=== PATIENT | male | born 1960 | race Caucasian/White ===

== ENCOUNTER 2017-07-22 15:45 | Emergency (ER) | payer MEDICAID ==
[2017-07-22] MEDS ORDERED: ACETAMINOPHEN 500 MG TABLET PO ONE (15:57)
--- NOTE | 2017-07-22 16:04 | Emergency Department Record ---
History of Present Illness - General Chief complaint: Head Injury Stated complaint: LACERATION ON HEAD/COKER Time Seen by Provider: 07/22/17 15:54 Source: Patient, Family Mode of Arrival: Wheelchair Limitations: No limitations - History of Present Illness Initial comments: 56 yo male presents after a trip and fall. He hit his head on a door way. He has lumbar disease and occasionally has falls due to pain. No LOC. No neck pain. No other injuries. No blood thinners. No new back symptoms. He does have a headache. MD Complaint: Head injury, Head pain Onset/Timin -: Minutes(s) Mechanism of Injury: Unsure Location: Frontal Loss of Consciousness: No Place: Home Severity scale (1-10): 8 Provoking factors: Other Travel Screening - Travel/Exposure Within Last 30 Days Have you traveled within the last 30 days?: No - Travel/Exposure Within Last Year Have you traveled outside the [place] in the last year?: No - Additonal Travel Details Have you been exposed to anyone with a communicable illness?: No - Travel Symptoms Symptom Screening: None Review of Systems Constitutional: Denies: Chills, Fever, Malaise, Weakness Eyes: Denies: Eye discharge ENT: Denies: Congestion, Throat pain Respiratory: Denies: Cough, Dyspnea, Hemoptysis, Stridor, Wheezes Cardiovascular: Denies: Chest pain, Palpitations, Syncope Endocrine: Denies: Fatigue Gastrointestinal: Denies: Abdominal pain, Diarrhea, Nausea, Vomiting Genitourinary: Denies: Frequency, Hematuria Musculoskeletal: Reports: Arthralgia, Back pain (chronic), Myalgia Skin: Reports: Bruising. Denies: Change in color Neurological: Reports: Headache. Denies: Abnormal gait, Confusion, Numbness, Tingling, Tremors, Vertigo, Weakness Psychiatric: Denies: Anxiety Hematological/Lymphatic: Denies: Blood Clots, Easy bleeding, Easy bruising, Swollen glands Past Medical History - SOCIAL HISTORY Smoking Status: Never smoker Alcohol Use: None Drug Use: None - RESPIRATORY Hx Respiratory Disorders: Yes Hx Asthma: Yes - CARDIOVASCULAR Hx Cardio Disorders: Yes Hx Hypertension: Yes - NEURO Hx Neuro Disorders: Yes Hx Dizziness: Yes - GI Hx GI Disorders: No - Hx Genitourinary Disorders: No - ENDOCRINE Hx Endocrine Disorders: Yes Hx Diabetes: Yes Hx Thyroid Disease: No - MUSCULOSKELETAL Hx Musculoskeletal Disorders: No - PSYCH Hx Psych Problems: No - HEMATOLOGY/ONCOLOGY Hx Hematology/Oncology Disorders: No Family Medical History Any Significant Family History?: No Physical Exam - General General Appearance: Alert, Oriented x3, Cooperative, No acute distress Limitations: No limitations - Head Head exam: Normocephalic. negative: Atraumatic, Normal inspection Head exam detail: Abrasion Image of Face/Head: 1 - abrasion with mild swelling - Eye Eye exam: Normal appearance, PERRL, EOMI. negative: Conjunctival injection, Periorbital swelling, Scleral icterus - ENT ENT exam: Normal exam, Mucous membranes moist Ear exam: Normal external inspection Nasal Exam: Normal inspection Mouth exam: Normal external inspection - Neck Neck exam: Normal inspection, Full ROM. negative: Tenderness - Respiratory Respiratory exam: Normal lung sounds bilaterally. negative: Respiratory distress - Cardiovascular Cardiovascular Exam: Regular rate, Normal rhythm, Normal heart sounds - GI/Abdominal GI/Abdominal exam: Soft. negative: Tenderness - Rectal Rectal exam: Deferred - exam: Deferred - Extremities Extremities exam: Normal inspection, Full ROM, Normal capillary refill. negative: Joint swelling, Pedal edema, Tenderness - Back Back exam: Reports: Normal inspection, Full ROM. Denies: CVA tenderness (R), CVA tenderness (L), Muscle spasm, Paraspinal tenderness, Rash noted, Tenderness , Vertebral tenderness - Neurological Neurological exam: Alert, Normal gait, Oriented X3, Reflexes normal - Psychiatric Psychiatric exam: Normal affect, Normal mood - Skin Skin exam: Dry, Intact, Normal color, Warm Course Vital Signs 07/22/17 15:48 Temperature 97.5 F L Pulse Rate 80 Respiratory 16 Rate Blood Pressure 120/84 Pulse Ox 96 - Reevaluation(s) Reevaluation #1: 07/22/17 16:56 The HCT is negative The wound is an abrasion and not a laceration DC home with abrasion and concussion instructions Disposition Disposition: Discharge Clinical Impression: Abrasion Contusion of head Qualifiers: Encounter type: initial encounter Contusion of head detail: scalp Qualified Code(s): S00.03XA - Contusion of scalp, initial encounter Disposition: Home, Self-Care Condition: (1) Good Instructions: Concussion (ED), Abrasion (ED) Additional Instructions: Ice the tender area Return if dizziness, nausea, vomiting, uncontrolled headache or any concerns Rest and avoid over exertion the next few days. Forms: Patient Portal Access Time of Disposition: 16:56 Quality - Quality Measures Quality Measures: N/A - Blood Pressure Screening Does Patient Have Any of the Following: No Blood Pressure Classification: Pre-Hypertensive BP Reading Systolic Measurement: 120 Diastolic Measurement: 84 Screening for High Blood Pressure: < Pre-Hypertensive BP, F/U Documented > [ G8950] Pre-Hypertensive Follow-up Interventions: Referral to alternative/primary care provider.
--- NOTE | 2017-07-23 07:53 | CT SCAN REPORT ---
EXAM: HEAD CT WITHOUT CONTRAST HISTORY: FALL, FOREHEAD LACERATION, NO LOSS OF CONSCIOUSNESS. TECHNIQUE: Contiguous axial images from the cerebral convexities to the foramen magnum were obtained without contrast. Comparison: None. Encounter: Initial. FINDINGS: The brain volume is normal. No acute intracranial hemorrhage, mass effect, or midline shift. No CT evidence of acute infarct. The ventricles, basal cisterns and sulci are within normal limits. The osseous structures, soft tissues and paranasal sinuses are unremarkable. IMPRESSION: NO ACUTE INTRACRANIAL PROCESS. JOB NUMBER: [id number] [facility]
== END 2017-07-22 17:14 | disposition home or self-care (01) ==
LOC: ER 15:45
DX: S00.03XA Contusion of scalp, initial encounter (principal); S00.01XA Abrasion of scalp, initial encounter; R51 Headache; W01.198A Fall on same level from slipping, tripping and stumbling with subsequent striking against other object, initial encounter; Y92.009 Unspecified place in unspecified non-institutional (private) residence as the place of occurrence of the external cause
CPT/HCPCS: 70450; 99283

== ENCOUNTER 2017-11-25 14:51 | Emergency (ER) | payer MEDICAID ==
--- NOTE | 2017-11-25 15:08 | Emergency Department Record ---
History of Present Illness - General Chief complaint: Extremity Problem Stated complaint: FALL INJURY, LEFT FOOT Time Seen by Provider: 11/25/17 15:04 Source: Patient Mode of Arrival: Ambulatory Limitations: No limitations - History of Present Illness Initial comments: The patient was walking around about 2 hours ago and stepped in a hole and inverted his L ankle. He has had L foot pain since. The patient denies any other issues. MD Complaint: Extremity pain Onset/Timin -: Hour(s) Location: Left, Foot History of Same: No Radiation: Proximal Severity scale (1-10): 3 Quality: Aching Consistency: Constant Improves with: Immobilization Worsens with: Walking, Weight bearing Associated Symptoms: Denies other symptoms - Related Data Home Medications Medication Instructions Recorded Confirmed Last Taken Amitriptyline HCl 25 mg PO QHS 11/25/17 11/25/17 Unknown Aspirin 81 mg PO QAM 11/25/17 11/25/17 Unknown Citalopram Hydrobromide [Celexa] 20 mg PO QHS 11/25/17 11/25/17 Unknown Fenofibrate 160 mg PO QAM 11/25/17 11/25/17 Unknown Ibuprofen [Motrin] 800 mg PO TID 11/25/17 11/25/17 Unknown Insulin Aspart [Novolog] 1 unit SQ ASDIR 11/25/17 11/25/17 Unknown Insulin Glargine,Hum.rec.anlog 100 unit SQ QHS 11/25/17 11/25/17 Unknown [Basaglar Kwikpen U-100] Lisinopril 10 mg PO QAM 11/25/17 11/25/17 Unknown Metformin HCl 1,000 mg PO BID 11/25/17 11/25/17 Unknown Omeprazole [Prilosec] 20 mg PO QAM 11/25/17 11/25/17 Unknown Allergies Allergy/AdvReac Type Severity Reaction Status Date / Time No Known Drug Allergies Allergy Verified 11/25/17 15:03 Travel Screening - Travel/Exposure Within Last 30 Days Have you traveled within the last 30 days?: No Review of Systems Constitutional: Denies: Chills, Fever Past Medical History - SOCIAL HISTORY Smoking Status: Never smoker Alcohol Use: None Drug Use: None - RESPIRATORY Hx Respiratory Disorders: Yes Hx Asthma: Yes - CARDIOVASCULAR Hx Cardio Disorders: Yes Hx Hypertension: Yes - NEURO Hx Neuro Disorders: Yes Hx Dizziness: Yes - GI Hx GI Disorders: No - Hx Genitourinary Disorders: No - ENDOCRINE Hx Endocrine Disorders: Yes Hx Diabetes: Yes Hx Thyroid Disease: No - MUSCULOSKELETAL Hx Musculoskeletal Disorders: No - PSYCH Hx Psych Problems: Yes Hx Anxiety: Yes Hx Depression: Yes - HEMATOLOGY/ONCOLOGY Hx Hematology/Oncology Disorders: No Family Medical History Any Significant Family History?: No Physical Exam - General General Appearance: Alert, Oriented x3, Cooperative, No acute distress - Head Head exam: Atraumatic, Normocephalic - Eye Eye exam: Normal appearance, PERRL - Extremities Extremities exam: Full ROM, Normal capillary refill, Tenderness. negative: Normal inspection (There is very minor bruising to the proximal lateral L foot.) , Joint swelling Image of Feet: 1 - Area of pain and tenderness. Course Vital Signs 11/25/17 14:57 Temperature 97.6 F Pulse Rate 83 Respiratory 20 Rate Blood Pressure 130/82 Pulse Ox 96 - Reevaluation(s) Reevaluation #1: I did discuss the xray results and the need for F/U with their PCP in [facility] for an Orthopedic doctor referral. 11/25/17 15:53 Medical Decision Making - Data Complexity MDM Data: X-Ray Ordered and/or Reviewed - Radiology Data Radiology results: Report reviewed (L foot: Nondisplaced fx base of 5th MT Mateo rowan: neg) Disposition Disposition: Discharge Clinical Impression: Foot fracture, left Qualifiers: Encounter type: initial encounter Fracture type: closed Qualified Code(s): S92.902A - Unspecified fracture of left foot, initial encounter for closed fracture Disposition: Home, Self-Care Condition: (2) Stable Instructions: Foot Fracture in Adults (ED) Additional Instructions: Please take your home pain medicines as needed and ice and elevate the L foot for 3 days. Use the walking boot and crutches as directed. Please see your family doctor for recheck early next week for recheck and to obtain an Orthopedic referral. Forms: Patient Portal Access Time of Disposition: 15:55 Quality - Quality Measures Quality Measures: N/A - Blood Pressure Screening View Details: Yes Does Patient Have Any of the Following: No Blood Pressure Classification: Pre-Hypertensive BP Reading Systolic Measurement: 130 Diastolic Measurement: 82 Screening for High Blood Pressure: < Pre-Hypertensive BP, F/U Documented > [ G8950] Pre-Hypertensive Follow-up Interventions: Referral to alternative/primary care provider.
--- NOTE | 2017-11-26 07:54 | RADIOLOGY REPORT ---
EXAM: LEFT FOOT HISTORY: INJURY. TECHNIQUE: Three views of the left foot were performed. FINDINGS: Nondisplaced fracture deformity at the base of the fifth metatarsal bone. Large calcaneal spur. The remaining osseous structures are normal. IMPRESSION: 1. NONDISPLACED FRACTURE DEFORMITY AT THE BASE OF THE FIFTH METATARSAL BONE. 2. LARGE CALCANEAL SPUR. JOB NUMBER: [id number] [facility]
--- NOTE | 2017-11-26 07:56 | RADIOLOGY REPORT ---
EXAM: LEFT ANKLE HISTORY: INJURY. TECHNIQUE: Three views of the left ankle were performed. FINDINGS: No evidence of fracture or dislocation. Large calcaneal spur. Soft tissue swelling. Fracture deformity at the base of the fifth metatarsal bone. IMPRESSION: 1. SOFT TISSUE SWELLING. FRACTURE DEFORMITY AT THE BASE OF THE FIFTH METATARSAL BONE. 2. LARGE CALCANEAL SPUR. JOB NUMBER: [id number] [facility]
== END 2017-11-25 16:30 | disposition home or self-care (01) ==
LOC: ER 14:51
DX: S92.352A Displaced fracture of fifth metatarsal bone, left foot, initial encounter for closed fracture (principal); M25.572 Pain in left ankle and joints of left foot; W50.2XXA Accidental twist by another person, initial encounter; I10 Essential (primary) hypertension
CPT/HCPCS: 99283

== ENCOUNTER 2018-10-09 18:40 | Emergency (ER) | payer MEDICAID ==
[2018-10-09 19:47] LABS: BASO % 0.1 % (0-6); EOS % 0.1 % (0-6); GRAN % 78.2 % (47-80); HEMOGLOBIN 17.5 gm/dl (14.0-18.0); MEAN CELL VOLUME 86.9 fl (81-97); MEAN CORPUSCULAR HGB CONC 35.7 g/dl (32-36); MEAN PLATELET VOLUME 10.1 fl (7.4-10.4); MONO % 6.6 % (0-9); PLATELET COUNT 202 K/uL (130-400); RED BLOOD COUNT 5.64 M/uL (4.40-5.70); RED CELL DISTRIBUTION WIDTH 13.4 % (11.5-14.5); WHITE BLOOD COUNT W/O DIFF 8.6 K/uL (4.2-12.2)
[2018-10-09 20:00] LABS: BLOOD UREA NITROGEN 16 mg/dL (6-20); CREATININE 1.2 mg/dL (0.7-1.2); EST GLOMERULAR FILTRATION RATE > 60 mL/min
[2018-10-09 20:01] LABS: LIPASE 45 U/L (13-60); TOTAL PROTEIN 8.4 g/dL (6.6-8.7)
[2018-10-09 20:03] LABS: GLUCOSE,RANDOM 254 mg/dL (74-109)
[2018-10-09 20:05] LABS: ALT/SGPT 39 U/L (<41)
[2018-10-09 20:06] LABS: ALB/GLOB RATIO 0.9 (1.1-1.8); ALBUMIN 3.9 g/dL (4.0-5.0); ALKALINE PHOSPHATASE 76 U/L (40-129); AST/SGOT 76 U/L (10.0-50.0)
[2018-10-09] MEDS: IPRATROPIUM/ALBUTEROL (0.5MG/3MG) NEB INH ONE (20:21)
[2018-10-09 20:45] LABS: URINE APPEARANCE CLEAR; URINE BILIRUBIN SMALL (NEGATIVE); URINE BLOOD TRACE-I (NEGATIVE); URINE GLUCOSE (UA) NEGATIVE (NEGATIVE); URINE KETONE NEGATIVE (NEGATIVE); URINE LEUKOCYTE ESTERASE NEGATIVE (NEGATIVE); URINE NITRITE NEGATIVE (NEGATIVE)
[2018-10-09 20:47] LABS: URINE COLOR DARK YELLOW
[2018-10-09 20:53] LABS: URINE AMORPHOUS SEDIMENT FEW; URINE RBC NONE SEEN (NONE SEEN); URINE WBC 0 - 2 (0-2/hpf)
[2018-10-09] MEDS: METHYLPREDNISOLONE PF 125MG/VIAL IVP ONE (21:14)
[2018-10-09] MEDS: 0.9 % SODIUM CHLORIDE 1,000 ML BAG IV ONE (21:15)
--- NOTE | 2018-10-09 23:40 | Emergency Department Record ---
History of Present Illness - General Chief Complaint: Shortness of breath Stated Complaint: VOMITING BLOOD,DIZINESS Time Seen by Provider: 10/09/18 19:12 Source: Patient Mode of Arrival: Wheelchair Limitations: No limitations - History of Present Illness Initial Comments: pt feels sob, n, prod cough w brownish sputum, weakness, difficulty walking Complaint: Cough, Shortness of breath Onset/Timin -: Days(s) Severity scale (1-10): 8 Quality: Sharp Consistency: Intermittent Worsens With: Exertion Known History Of: Asthma Associated Symptoms: Abdominal pain, Cough, Nausea/vomiting, Sputum production Treatments Prior to Arrival: Bronchodilator - Related Data Home Oxygen Therapy: No Home Oxygen Amount: CPAP Home Medications Medication Instructions Recorded Confirmed Last Taken Hydrocodone/Acetaminophen [Vaughn 1 tab PO Q6H PRN 10/09/18 10/09/18 Unknown 10mg/325mg] Previous Rx's Medication Instructions Recorded Amoxicillin/Potassium Clav 1 each PO BID #14 tablet 10/09/18 [Augmentin 875Mg/125Mg] Allergies Allergy/AdvReac Type Severity Reaction Status Date / Time No Known Drug Allergies Allergy Verified 11/25/17 15:03 Travel Screening - Travel/Exposure Within Last 30 Days Have you traveled within the last 30 days?: No - Travel Symptoms Symptom Screening: None Review of Systems Reviewed: No additional complaints except as noted below Constitutional: Reports: As per HPI, Weakness. Denies: Chills, Fever, Malaise, Night sweats, Weight change Eyes: Reports: As per HPI. Denies: Eye discharge, Eye pain, Photophobia, Vision change ENT: Reports: As per HPI, Congestion. Denies: Dental pain, Ear pain, Epistaxis , Hearing loss, Throat pain Respiratory: Reports: As per HPI, Cough, Dyspnea, Hemoptysis. Denies: Stridor, Wheezes Cardiovascular: Reports: As per HPI. Denies: Arrhythmia, Chest pain, Dyspnea on exertion, Edema, Murmurs, Orthopnea, Palpitations, Paroxysmal nocturnal dyspnea, Rheumatic Fever, Syncope Endocrine: Reports: As per HPI. Denies: Fatigue, Heat or cold intolerance, Polydipsia, Polyuria Gastrointestinal: Reports: As per HPI. Denies: Abdominal pain, Constipation, Diarrhea, Hematemesis, Hematochezia, Melena, Nausea, Vomiting Genitourinary: Reports: As per HPI. Denies: Dysuria, Frequency, Hematuria, Incontinence, Retention, Testicular pain, Testicular mass, Urgency Musculoskeletal: Reports: As per HPI. Denies: Arthralgia, Back pain, Gout, Joint swelling, Myalgia, Neck pain Skin: Reports: As per HPI. Denies: Bruising, Change in color, Change in hair/ nails, Lesions, Pruritus, Rash Neurological: Reports: As per HPI. Denies: Abnormal gait, Confusion, Headache, Numbness, Paresthesias, Seizure, Tingling, Tremors, Vertigo, Weakness Psychiatric: Reports: As per HPI. Denies: Anxiety, Auditory hallucinations, Depression, Homicidal thoughts, Suicidal thoughts, Visual hallucinations Hematological/Lymphatic: Reports: As per HPI. Denies: Anemia, Blood Clots, Easy bleeding, Easy bruising, Swollen glands Past Medical History - SOCIAL HISTORY Smoking Status: Never smoker - RESPIRATORY Hx Respiratory Disorders: Yes Hx Asthma: Yes Hx Sleep Apnea: Yes Hx of CPAP: Yes - CARDIOVASCULAR Hx Cardio Disorders: Yes Hx Hypertension: Yes - NEURO Hx Neuro Disorders: Yes Hx Dizziness: Yes - GI Hx GI Disorders: Yes Hx Reflux: Yes - Hx Genitourinary Disorders: No - ENDOCRINE Hx Endocrine Disorders: Yes Hx Diabetes: Yes Hx Thyroid Disease: No - MUSCULOSKELETAL Hx Musculoskeletal Disorders: Yes - PSYCH Hx Psych Problems: Yes Hx Anxiety: Yes Hx Depression: Yes - HEMATOLOGY/ONCOLOGY Hx Hematology/Oncology Disorders: No Family Medical History Any Significant Family History?: Yes Hx Cancer: Father, Mother Hx Kidney Disease: Brother/Sister Physical Exam - General General Appearance: Alert, Oriented x3, Cooperative, Mild distress - Head Head exam: Normal inspection - Eye Eye exam: Normal appearance, PERRL, EOMI Pupils: Normal accommodation - ENT ENT exam: Normal exam, Mucous membranes moist, Normal external ear exam, Normal orophraynx Ear exam: Normal external inspection. negative: External canal tenderness Nasal Exam: Normal inspection. negative: Discharge, Sinus tenderness Mouth exam: Normal external inspection, Tongue normal Teeth exam: Normal inspection. negative: Dental caries Throat exam: Normal inspection. negative: Tonsillar erythema, Tonsillar exudate - Neck Neck exam: Normal inspection, Full ROM. negative: Tenderness - Respiratory Respiratory exam: Normal lung sounds bilaterally. negative: Respiratory distress - Cardiovascular Cardiovascular Exam: Normal rhythm, Normal heart sounds, Tachycardia - GI/Abdominal GI/Abdominal exam: Soft, Normal bowel sounds. negative: Tenderness - Rectal Rectal exam: Deferred - exam: Deferred - Extremities Extremities exam: Normal inspection, Full ROM, Normal capillary refill. negative: Tenderness - Back Back exam: Reports: Normal inspection, Full ROM. Denies: Muscle spasm, Rash noted, Tenderness - Neurological Neurological exam: Alert, CN II-XII intact, Normal gait, Oriented X3 - Psychiatric Psychiatric exam: Normal affect, Normal mood - Skin Skin exam: Dry, Intact, Normal color, Warm Course Vital Signs 10/09/18 10/09/18 10/09/18 19:06 20:18 20:41 Temperature 100.6 F H Pulse Rate 96 H Pulse Rate [ 120 H Group Worker ] Pulse Rate [ 115 H Pulse Ox Probe] Respiratory 32 H 22 44 H Rate Blood Pressure 158/90 [Left Arm] Blood Pressure 152/80 [Right Arm] Pulse Ox 94 L 94 L 90 L 10/09/18 10/09/18 21:15 22:33 Temperature Pulse Rate Pulse Rate [ 116 H 98 H Group Worker ] Pulse Rate [ Pulse Ox Probe] Respiratory 30 H 16 Rate Blood Pressure [Left Arm] Blood Pressure 142/82 122/62 [Right Arm] Pulse Ox 93 L 92 L - Reevaluation(s) Reevaluation #1: 10/09/18 23:38 pt feels better. Medical Decision Making - Lab Data Result diagrams: 10/09/18 19:25 10/09/18 19:25 Lab Results 10/09/18 10/09/18 10/09/18 Range/Units 10:25 19:25 19:25 WBC 8.6 (4.2-12.2) K/uL RBC 5.64 (4.40-5.70) M/uL Hgb 17.5 (14.0-18.0) gm/dl Hct 49.0 (42.0-52.0) % MCV 86.9 (81-97) fl MCH 31.0 (27-33) pg MCHC 35.7 (32-36) g/dl RDW 13.4 (11.5-14.5) % Plt Count 202 (130-400) K/uL MPV 10.1 (7.4-10.4) fl Gran % 78.2 (47-80) % Lymphocytes % 15.0 L (16-45) % Monocytes % 6.6 (0-9) % Eosinophils % 0.1 (0-6) % Basophils % 0.1 (0-6) % D-Dimer 0.53 (0-0.59) mg/L FEU Sodium 132 L (136-145) mmol/L Potassium 4.1 (3.4-4.5) mmol/L Chloride 95 L (98-107) mmol/L Carbon Dioxide 22.0 (22-29) mmol/L Anion Gap 15.0 (7-16) BUN 16 (6-20) mg/dL Creatinine 1.2 (0.7-1.2) mg/dL Estimated GFR > 60 mL/min Random Glucose 254 H (74-109) mg/dL Calcium 9.2 (8.6-10.0) mg/dL Total Bilirubin 1.50 H (0.2-1.0) mg/dL AST 76 H (10.0-50.0) U/L ALT 39 (<41) U/L Alkaline Phosphatase 76 (40-129) U/L Troponin T < 0.010 (0-0.010) ng/mL Total Protein 8.4 (6.6-8.7) g/dL Albumin 3.9 L (4.0-5.0) g/dL Globulin 4.5 (1.4-4.8) gm/dL Albumin/Globulin Ratio 0.9 L (1.1-1.8) Lipase 45 (13-60) U/L Urine Color Urine Appearance Urine pH (5.0-8.0) Ur Specific Roslyn (1.002-1.030) Urine Protein (NEGATIVE) Urine Glucose (UA) (NEGATIVE) Urine Ketones (NEGATIVE) Urine Blood (NEGATIVE) Urine Nitrite (NEGATIVE) Urine Bilirubin (NEGATIVE) Urine Urobilinogen (0.20 - 1.00) E.U./dL Ur Leukocyte Esterase (NEGATIVE) Urine RBC (NONE SEEN) Urine WBC (0-2/hpf) Ur Epithelial Cells (FEW) Amorphous Sediment 10/09/18 Range/Units 20:38 WBC (4.2-12.2) K/uL RBC (4.40-5.70) M/uL Hgb (14.0-18.0) gm/dl Hct (42.0-52.0) % MCV (81-97) fl MCH (27-33) pg MCHC (32-36) g/dl RDW (11.5-14.5) % Plt Count (130-400) K/uL MPV (7.4-10.4) fl Gran % (47-80) % Lymphocytes % (16-45) % Monocytes % (0-9) % Eosinophils % (0-6) % Basophils % (0-6) % D-Dimer (0-0.59) mg/L FEU Sodium (136-145) mmol/L Potassium (3.4-4.5) mmol/L Chloride (98-107) mmol/L Carbon Dioxide (22-29) mmol/L Anion Gap (7-16) BUN (6-20) mg/dL Creatinine (0.7-1.2) mg/dL Estimated GFR mL/min Random Glucose (74-109) mg/dL Calcium (8.6-10.0) mg/dL Total Bilirubin (0.2-1.0) mg/dL AST (10.0-50.0) U/L ALT (<41) U/L Alkaline Phosphatase (40-129) U/L Troponin T (0-0.010) ng/mL Total Protein (6.6-8.7) g/dL Albumin (4.0-5.0) g/dL Globulin (1.4-4.8) gm/dL Albumin/Globulin Ratio (1.1-1.8) Lipase (13-60) U/L Urine Color Dark yellow Urine Appearance Clear Urine pH 5.0 (5.0-8.0) Ur Specific Roslyn >= 1.030 (1.002-1.030) Urine Protein 100 mg/dl H (NEGATIVE) Urine Glucose (UA) Negative (NEGATIVE) Urine Ketones Negative (NEGATIVE) Urine Blood Trace-i (NEGATIVE) Urine Nitrite Negative (NEGATIVE) Urine Bilirubin Small H (NEGATIVE) Urine Urobilinogen 4.0 H (0.20 - 1.00) E.U./dL Ur Leukocyte Esterase Negative (NEGATIVE) Urine RBC None seen (NONE SEEN) Urine WBC 0 - 2 (0-2/hpf) Ur Epithelial Cells 3 - 6 (FEW) Amorphous Sediment Few Disposition Disposition: Discharge Clinical Impression: Bronchitis, Dehydration Sinusitis Qualifiers: Sinusitis location: maxillary Chronicity: acute Recurrence: not specified as recurrent Qualified Code(s): J01.00 - Acute maxillary sinusitis, unspecified Asthma attack Qualifiers: Asthma severity: mild Asthma persistence: intermittent Qualified Code(s): J45.21 - Mild intermittent asthma with (acute) exacerbation Disposition: Home, Self-Care Condition: (1) Good Instructions: Dyspnea (ED), Acute Bronchitis (ED), Dehydration (ED) Additional Instructions: follow up with family doctor this week. return sooner if worse. have lungs reevaluated for hemoptysis Prescriptions: Amoxicillin/Potassium Clav [Augmentin 875Mg/125Mg] 1 each PO BID #14 tablet Quality - Quality Measures Quality Measures: N/A - Blood Pressure Screening Does Patient Have Any of the Following: No Blood Pressure Classification: Pre-Hypertensive BP Reading Systolic Measurement: 122 Diastolic Measurement: 62 Screening for High Blood Pressure: < Pre-Hypertensive BP, F/U Documented > [ G8950] Pre-Hypertensive Follow-up Interventions: Follow-up with rescreen every year.
[2018-10-09] MEDS: AMOXICILLIN/POTASSIUM CLAV 875MG/125MG TABLET PO ONE (23:52)
[2018-10-09] MEDS: ACETAMINOPHEN 500 MG TABLET PO ONE (23:52)
--- NOTE | 2018-10-12 13:08 | RADIOLOGY REPORT ---
EXAM: CHEST, TWO VIEWS HISTORY: CHRONIC SHORTNESS OF BREATH, VOMITING WITH BLOOD. TECHNIQUE: PA and lateral views of the chest were obtained. Comparison: 05/10/11. FINDINGS: The cardiomediastinal silhouette is normal in size. The pulmonary vasculature is not congested. No focal consolidation, pleural effusion, or pneumothorax is seen. IMPRESSION: NO ACUTE CARDIOPULMONARY PROCESS. JOB NUMBER: [id number] [facility]
--- NOTE | 2018-10-12 13:12 | CT SCAN REPORT ---
EXAM: CT OF THE HEAD WITHOUT CONTRAST HISTORY: DIZZINESS AND FRONTAL HEADACHE. TECHNIQUE: Standard CT imaging of the head without contrast was obtained. Comparison: 07/22/17. FINDINGS: The ventricles, sulci, and basal cisterns are normal. No acute intracranial hemorrhage, extraaxial fluid collection, or acute infarct is evident. No significant mass effect or midline shift. There is mild mucosal thickening throughout the paranasal sinuses with fluid layering in the maxillary sinuses compatible with the clinical diagnosis of acute sinusitis. The mastoid air cells are clear. IMPRESSION: 1. NO EVIDENCE FOR ACUTE INTRACRANIAL ABNORMALITY. 2. PANSINUSITIS WITH FINDINGS COMPATIBLE WITH THE CLINICAL DIAGNOSIS OF ACUTE SINUSITIS. J[facility]BER: [id number] [facility]
== END 2018-10-09 23:57 | disposition home or self-care (01) ==
LOC: ER 18:40
DX: J45.21 Mild intermittent asthma with (acute) exacerbation (principal); J20.9 Acute bronchitis, unspecified; J01.00 Acute maxillary sinusitis, unspecified; E86.0 Dehydration; R06.02 Shortness of breath; R26.2 Difficulty in walking, not elsewhere classified; M25.571 Pain in right ankle and joints of right foot; I10 Essential (primary) hypertension; E11.9 Type 2 diabetes mellitus without complications; Z79.4 Long term (current) use of insulin
CPT/HCPCS: 70450; 71046; 80053; 81001; 83690; 84484; 85025; 85379; 93005; 93010; 94640; 96361; 96374; 99284; J2930; J7030